=== PATIENT | male | born 1960 | race Two or more races ===

== ENCOUNTER → 2024-04-22 | Outpatient (CLI) | payer BC, SELFPAY ==
--- NOTE | 2024-04-22 | XR_ITS ---
Examination: Right foot 3 views TECHNIQUE: AP lateral oblique right foot 3 views Exam date and time: April 22, 2024 at 1226 hours INDICATIONS: Swelling and pain involving the big toe one week. FINDINGS: Erosions involving the distal first metatarsal and base of the proximal phalanx first digit No fracture Small plantar bony calcaneal spur IMPRESSION: Erosive arthritis first metatarsophalangeal joint, differential would include gouty arthropathy, osteomyelitis, clinical correlation advised Consider MRI foot without contrast follow-up
== END | disposition home or self-care (01) ==
PROVIDERS: PCP General Practice; Referring Provider Physician Assistant Medical; Visit Provider Physician Assistant Medical
DX: M13.871 Other specified arthritis, right ankle and foot (principal)
CPT/HCPCS: 73630